=== PATIENT | male | born 1970 | race Caucasian/White ===

== ENCOUNTER 2016-07-22 10:44 | Emergency (ER) | payer OTHER ==
[2016-07-22 10:58] VITALS: BP 144/100
[2016-07-22] MEDS ORDERED: Cyclobenzaprine TAB* 10 MG PO ONE (11:22)
[2016-07-22] MEDS ORDERED: HYDROcodone/ACETAMIN 5-325 MG* 1 TAB PO ONE (11:23)
--- NOTE | 2016-07-22 11:30 | UC ---
esau Welch Timothy, scribed for Calista Gann MD on 07/22/16 at 1104 . Back Pain HPI - HPI Summary HPI Summary: Valente Hedrick is a 46 yo male presenting to [facility] with 10/10 bilateral lower back pain with spasms since 07/17/16, worse in the past 2 days. He states he does not remember any trauma, but remembers picking something up to put in his truck last week which may have aggravated his Sx. Pt has had similar sx in the past - but usually he can stretch and it improves. He presented to a chiropractor yesterday and following his adjustment, his symptoms increased. Pt reports tingling intermittently in right LE. No bowel/bladder changes/ incontience. Pt without other complaints. No cp, sob, abd pain. Pt is requesting an X-Ray "to look for a pinched nerve". Pt has self-medicated with ibuprofen with no relief. Pt has applied ice without relief. He has a Hx of chronic flare ups, but he states this has been worse than previous flare ups, and has never been admitted to a hospital for his back pain. Pt's father drove to ED. Sx. He states his father drove him to [facility] today. He denies any PMHx other than abd hernia. Pt medication list was reviewed this visit. - History of Current Complaint Stated Complaint: BACK PAIN Time Seen by Provider: 07/22/16 11:18 Hx Obtained From: Patient Onset/Duration: Gradual Onset, Lasting Days, Still Present, Worse Since - 2 days Timing: Constant Severity Initially: Moderate Severity Currently: Moderate Pain Intensity: 10 Pain Scale Used: 0-10 Numeric Back Pain: Is Discrete @ - bilateral lower back Character: Spasmodic Alleviating: Position - Allergies/Home Medications Allergies/Adverse Reactions: Allergies Allergy/AdvReac Type Severity Reaction Status Date / Time No Known Allergies Allergy Verified 06/19/14 06:48 Home Medications: Home Medications Ibuprofen [Advil] 800 mg PO 07/22/16 [History] PMH/Surg Hx/FS Hx/Imm Hx Previously Healthy: Yes GI/ History: Other Other GI/ History: abd hernia - Surgical History Surgical History: Yes Surgery Procedure, Year, and Place: umbilical hernia repair - Family History Known Family History: Positive: Hypertension, Diabetes, Other - back problems - Social History Occupation: Employed Full-time Alcohol Use: Rare Substance Use Type: None Smoking Status (MU): Never Smoked Tobacco Review of Systems Constitutional: Negative Skin: Negative Eyes: Negative ENT: Negative Respiratory: Negative Cardiovascular: Negative Gastrointestinal: Negative Genitourinary: Negative Motor: Negative Neurovascular: Negative Musculoskeletal: Other: - bilateral lower back pain, right lower muscle spasm Neurological: Paresthesia - right leg Psychological: Negative All Other Systems Reviewed And Are Negative: Yes Physical Exam Triage Information Reviewed: Yes Appearance: Well-Appearing, Well-Nourished, Pain Distress - discomfort with movement - position of comfort standing Vital Signs: Initial Vital Signs Temp 98.2 F 07/22/16 10:54 Pulse 85 07/22/16 10:54 Resp 18 07/22/16 10:54 BP 144/100 07/22/16 10:54 Pulse Ox 98 07/22/16 10:54 Vital Signs Reviewed: Yes Eye Exam: Normal ENT: Positive: Hearing grossly normal Neck exam: Normal Neck: Positive: Supple, Nontender, No Lymphadenopathy Respiratory: Positive: Lungs clear, Normal breath sounds. Negative: Wheezing Cardiovascular: Positive: RRR, No Murmur, Pulses Normal, Other: - 2+ PT Abdominal Exam: Normal Abdomen Description: Positive: Nontender, No Organomegaly, Soft Bowel Sounds: Positive: Present Musculoskeletal: Positive: Other: - + TTP right lower lumbar paraspinal muscle pain and palpable spasm - pt with direct palpation + SLE b/l with increased back on right + flex/ext knee, ankle against resistance Neurological Exam: Normal Neurological: Positive: Muscle Tone Normal, Other: - 2+ patellar, achilles b/l without clonus + gross sensation throughout LE Psychological Exam: Normal Skin Exam: Normal Diagnostics - Radiology L-Spine XR Xray Interpretation: Positive (See Comments) - IMPRESSION: Degenerative disc disease at L1-L2, L2-L3 and L3-L4 without fracture. Radiology Interpretation Completed By: Radiologist Re-Evaluation - Re-Evaluation First Eval Re-Evaluation Time: 12:11 Change: Unchanged Comment: Discussed imaging study with Pt. Pt states pain slightly improved - meds given < 15min ago He is agreeable to be discharged. Back Pain Course/Dx - Course Course Of Treatment: Valente Hedrick is a 46 yo male presenting to [facility] with 10/10 back pain for the past week, worse in the past 2 days, with mild tingling in his right leg, requesting an X-Ray. [facility]STOP was consulted: he has had no Rx for the past 6 months. He denies any Hx of narcotic prescriptions, except possibly for his hernia surgery, after which he was slightly nauseous. Pt was counseled that X-Rays will not show nerves or nerve damage. Pt was counseled regarding prescriptions for muscle spasms and had his questions answered. In the ED course he received norco and felxeril for pain management. His CXR suggests degnerative disc disease in L1-L2, L2-L3 and L3-L4 without fracture. After clinical examination and review of his imaging study, he will be discharged home with appropriate instructions. Will check xray and reassess. Pt's father present for ride home - Differential Dx/Diagnosis Provider Diagnoses: lumbar back pain Discharge - Discharge Plan Condition: Stable Disposition: HOME Discharge Disposition Comment: lumbar muscle spasm Prescriptions: Cyclobenzaprine TAB* [Flexeril 10 MG TAB*] 10 mg PO BID PRN #10 tab PRN Reason: Spasms Hydrocodone-Acetaminophen [[place] 5-325 mg] 1 - 2 tab PO Q6HR PRN #15 tab MDD 8 PRN Reason: Pain Patient Education Materials: Acute Low Back Pain (ED) Forms: *Work Release Referrals: Azra PAGE [facility] FAM[facility]ie [Primary Care Provider] - 2 Days Additional Instructions: - Alternate ibuprofen (Advil, Motrin) 600mg and Tylenol (Tylenol or [place]) every 3 hours for pain. Take with food. Do NOT take for more than 4-5 days. - Take muscle relaxant as prescribed - Apply heat 20 minutes at time - once your muscles are warm - slow, gentle stretching exercises once your muscles are warm - [place] may cause constipation - it is recommended you take a stool softner as needed so you do not have to strain to have a bowel movement - When lying down, place a pillow under your knees or between your knees to help relax the pressure on your back Call your doctor to schedule a follow-up appointment. Call your doctor or return with questions or concerns The documentation as recorded by the esau de oliveira Timothy accurately reflects the service I personally performed and the decisions made by , Calista Gann MD.
--- NOTE | 2016-07-22 11:58 | RAD ---
Indication: Lumbar back pain. 3 views of lumbar spine demonstrates vertebral bodies to be normal in height. Disc space narrowing at L1-L2, L2-L3 and L3-L4 with dorsal and ventral osteophyte formation is noted. Pedicles appear intact. IMPRESSION: Degenerative disc disease at L1-L2, L2-L3 and L3-L4 without fracture.
== END 2016-07-22 12:29 | disposition home or self-care (01) ==
LOC: UCEAST 10:44
DX: M51.36 Other intervertebral disc degeneration, lumbar region (principal)
CPT/HCPCS: 72100; 99212; A9270-GY; G0463

== ENCOUNTER 2020-12-19 06:09 | Inpatient (IN) ==
[2020-12-19 07:48] LABS: ABS Lymphocytes 0.6 10^3/ul (1.0-4.8); ABS Monocytes 0.7 10^3/ul (0-0.8); ABS Neutrophils 9.4 10^3/ul (1.5-7.7); Hematocrit 46 % (42-52); Hemoglobin 16.1 g/dL (14.0-18.0); Lymphocyte % 5.9 %; Mean Corpuscular HGB Conc 35 g/dL (31-36); Mean Corpuscular Hemoglobin 32 pg (27-31); Mean Corpuscular Volume 90 fL (80-94); Platelet Count 180 10^3/uL (150-450); Red Blood Count 5.06 10^6 /uL (4.18-5.48); Red Cell Distribution Width 13 % (10-15); White Blood Count 10.8 10^3/uL (3.5-10.8)
[2020-12-19 08:07] LABS: Albumin 3.7 g/dL (3.2-5.2); Albumin/Globulin Ratio 1.1 (1-3); Calcium 9.5 mg/dL (8.6-10.3); Globulin 3.3 g/dL (2-4); Total Bilirubin 1.2 mg/dL (0.2-1.0)
[2020-12-19 08:10] LABS: Rapid COVID-19 Molecular Undetected (Undetected)
[2020-12-19] MEDS ORDERED: Remdesivir 100 mg Vial 200 MG in NS 0.9% 250 ml 210 ML IV ONE (09:55)
[2020-12-19] MEDS ORDERED: NS 0.9% 1000 ml BAG 1,000 ML IV SCH (10:00)
[2020-12-19] MEDS ORDERED: Iohexol 350 (CONTRAST) 500 ML MDV IV ONE (10:19)
[2020-12-19 10:26] LABS: INR 1.2 (0.86-1.15)
[2020-12-19] MEDS: Enoxaparin 40 MG/0.4 ML SYR SUBCUT SCH (22:05)
[2020-12-20] MEDS: guaiFENesin/CODIENE 100mg/10mg 5 ML UDC PO PRN ×4 (02:10→22:50)
[2020-12-20 06:41] LABS: INR 1.2 (0.86-1.15)
[2020-12-20 06:57] LABS: Albumin 3.4 g/dL (3.2-5.2); Albumin/Globulin Ratio 1.2 (1-3); Calcium 8.9 mg/dL (8.6-10.3); Globulin 2.8 g/dL (2-4); Potassium 4.1 mmol/L (3.5-5.0); Total Protein 6.2 g/dL (6.4-8.9)
[2020-12-20] MEDS: Remdesivir 100 mg Vial 100 MG in NS 0.9% 250 ml 230 ML IV SCH (09:03)
[2020-12-20 12:56] LABS: PCO2 Arterial 41 mmHg (35-45); PO2 Arterial 68 mmHg (80-100)
[2020-12-20] MEDS ORDERED: Furosemide 40 mg/4 ml IV VIAL IV ONE (13:23)
[2020-12-20] MEDS ORDERED: Tocilizumab 200 MG/10 ML 10 ml VIAL IVPB ONE (13:24)
[2020-12-20] MEDS ORDERED: Tocilizumab** 800 MG in NS 0.9% 100 ml BAG 60 ML IVPB ONE (14:00)
[2020-12-20] MEDS: Enoxaparin 40 MG/0.4 ML SYR SUBCUT SCH (20:16)
[2020-12-21] MEDS: guaiFENesin/CODIENE 100mg/10mg 5 ML UDC PO PRN (03:59)
[2020-12-21 05:54] LABS: INR 1.23 (0.86-1.15)
[2020-12-21 06:18] LABS: Albumin 3.4 g/dL (3.2-5.2); Albumin/Globulin Ratio 1.2 (1-3); Calcium 9.1 mg/dL (8.6-10.3); Globulin 2.9 g/dL (2-4); Potassium 4.1 mmol/L (3.5-5.0); Total Protein 6.3 g/dL (6.4-8.9)
[2020-12-21 09:09] LABS: PCO2 Arterial 34 mmHg (35-45); PO2 Arterial 107 mmHg (80-100)
[2020-12-21] MEDS: Remdesivir 100 mg Vial 100 MG in NS 0.9% 250 ml 230 ML IV SCH (09:19)
[2020-12-21] MEDS ORDERED: methylPREDNISolone 125 mg 2 ML VIAL IV ONE (12:04)
[2020-12-21] MEDS ORDERED: Furosemide 40 mg/4 ml IV VIAL IV SLOW PU ONE (12:04)
[2020-12-21] MEDS: Enoxaparin 40 MG/0.4 ML SYR SUBCUT SCH (19:28)
[2020-12-21] MEDS: methylPREDNISolone SOD 40 mg/ml 1 ml VIAL IV SCH (22:42)
[2020-12-22 05:06] LABS: ABS Lymphocytes 0.5 10^3/ul (1.0-4.8); ABS Monocytes 0.7 10^3/ul (0-0.8); ABS Neutrophils 8.4 10^3/ul (1.5-7.7); Hematocrit 45 % (42-52); Hemoglobin 15.5 g/dL (14.0-18.0); Mean Corpuscular HGB Conc 34 g/dL (31-36); Mean Corpuscular Hemoglobin 32 pg (27-31); Mean Corpuscular Volume 92 fL (80-94); Mean Platelet Volume 8.7 fL (7.4-10.4); Platelet Count 297 10^3/uL (150-450); Red Blood Count 4.91 10^6 /uL (4.18-5.48); Red Cell Distribution Width 13 % (10-15); White Blood Count 9.6 10^3/uL (3.5-10.8)
[2020-12-22 05:11] LABS: INR 1.17 (0.86-1.15)
[2020-12-22 05:21] LABS: Calcium 9.2 mg/dL (8.6-10.3); Magnesium 2.2 mg/dL (1.9-2.7); Phosphorus 3.5 mg/dL (2.5-5.0); Potassium 4.3 mmol/L (3.5-5.0)
[2020-12-22] MEDS: Remdesivir 100 mg Vial 100 MG in NS 0.9% 250 ml 230 ML IV SCH (09:12)
[2020-12-22] MEDS: methylPREDNISolone SOD 40 mg/ml 1 ml VIAL IV SCH ×2 (11:44→22:50)
[2020-12-22] MEDS: Multivitamins/Minerals TAB PO SCH (15:47)
[2020-12-22] MEDS: Enoxaparin 40 MG/0.4 ML SYR SUBCUT SCH (20:06)
[2020-12-22] MEDS: Acetylcysteine 600mgCAP(RENAL) PO SCH (20:06)
[2020-12-23 05:24] LABS: Hematocrit 46 % (42-52); Hemoglobin 15.5 g/dL (14.0-18.0); Mean Corpuscular HGB Conc 34 g/dL (31-36); Mean Corpuscular Hemoglobin 31 pg (27-31); Mean Corpuscular Volume 92 fL (80-94); Mean Platelet Volume 8.3 fL (7.4-10.4); Platelet Count 319 10^3/uL (150-450); Red Blood Count 4.95 10^6 /uL (4.18-5.48); Red Cell Distribution Width 13 % (10-15); White Blood Count 10.5 10^3/uL (3.5-10.8)
[2020-12-23 05:30] LABS: INR 1.04 (0.86-1.15)
[2020-12-23 05:40] LABS: Calcium 8.9 mg/dL (8.6-10.3); Magnesium 2.3 mg/dL (1.9-2.7); Phosphorus 3.6 mg/dL (2.5-5.0); Potassium 4.6 mmol/L (3.5-5.0)
[2020-12-23 05:53] LABS: ABS Lymphocytes 0.8 10^3/ul (1.0-4.8); ABS Monocytes 0.7 10^3/ul (0-0.8); Eosinophil % 0.1 %; Lymphocyte % 7.4 %; Nucleated Red Blood Cells % 0.1
[2020-12-23] MEDS: Acetylcysteine 600mgCAP(RENAL) PO SCH ×2 (08:37→20:25)
[2020-12-23] MEDS: Multivitamins/Minerals TAB PO SCH (08:37)
[2020-12-23] MEDS: Remdesivir 100 mg Vial 100 MG in NS 0.9% 250 ml 230 ML IV SCH (08:40)
[2020-12-23 10:14] LABS: PCO2 Arterial 46 mmHg (35-45)
[2020-12-23 10:20] LABS: PO2 Arterial 41 mmHg (80-100)
[2020-12-23] MEDS: methylPREDNISolone SOD 40 mg/ml 1 ml VIAL IV SCH ×2 (11:19→22:58)
[2020-12-23] MEDS: Enoxaparin 40 MG/0.4 ML SYR SUBCUT SCH (20:25)
[2020-12-24 05:18] LABS: Hematocrit 45 % (42-52); Hemoglobin 15.4 g/dL (14.0-18.0); Mean Corpuscular HGB Conc 34 g/dL (31-36); Mean Corpuscular Hemoglobin 32 pg (27-31); Mean Corpuscular Volume 93 fL (80-94); Mean Platelet Volume 8.3 fL (7.4-10.4); Platelet Count 341 10^3/uL (150-450); Red Blood Count 4.87 10^6 /uL (4.18-5.48); Red Cell Distribution Width 13 % (10-15); White Blood Count 11.5 10^3/uL (3.5-10.8)
[2020-12-24 05:23] LABS: INR 1.06 (0.86-1.15)
[2020-12-24 05:35] LABS: Calcium 8.8 mg/dL (8.6-10.3); Magnesium 2.3 mg/dL (1.9-2.7); Phosphorus 3.1 mg/dL (2.5-5.0); Potassium 4.8 mmol/L (3.5-5.0)
[2020-12-24 05:40] LABS: ABS Eosinophils 0.1 10^3/ul (0-0.6); ABS Lymphocytes 0.6 10^3/ul (1.0-4.8); ABS Monocytes 0.6 10^3/ul (0-0.8); ABS Neutrophils 10.1 10^3/ul (1.5-7.7); Lymphocyte % 5.5 %; Nucleated Red Blood Cells % 0.1
[2020-12-24] MEDS ORDERED: Perflutren Lipid Microsphere 3 ML VIAL ONE (08:47)
[2020-12-24] MEDS: Acetylcysteine 600mgCAP(RENAL) PO SCH ×2 (09:15→22:16)
[2020-12-24] MEDS: Multivitamins/Minerals TAB PO SCH (09:15)
[2020-12-24] MEDS: methylPREDNISolone SOD 40 mg/ml 1 ml VIAL IV SCH (12:49)
[2020-12-24] MEDS: Enoxaparin 40 MG/0.4 ML SYR SUBCUT SCH (22:16)
[2020-12-25 06:37] LABS: Hematocrit 47 % (42-52); Hemoglobin 15.9 g/dL (14.0-18.0); Mean Corpuscular HGB Conc 34 g/dL (31-36); Mean Corpuscular Hemoglobin 31 pg (27-31); Mean Corpuscular Volume 92 fL (80-94); Mean Platelet Volume 8.5 fL (7.4-10.4); Platelet Count 391 10^3/uL (150-450); Red Blood Count 5.07 10^6 /uL (4.18-5.48); Red Cell Distribution Width 14 % (10-15); White Blood Count 14.7 10^3/uL (3.5-10.8)
[2020-12-25 07:04] LABS: Magnesium 2.3 mg/dL (1.9-2.7); Potassium 4.4 mmol/L (3.5-5.0)
[2020-12-25 07:44] LABS: RBC Morphology Normal (Normal)
[2020-12-25 07:45] LABS: ABS Basophils 0.1 10^3/ul (0-0.2); ABS Eosinophils 0.2 10^3/ul (0-0.6); ABS Lymphocytes 2.3 10^3/ul (1.0-4.8); ABS Monocytes 1.2 10^3/ul (0-0.8); ABS Neutrophils 10.9 10^3/ul (1.5-7.7); Eosinophil % 1.5 %; Lymphocyte % 15.5 %
[2020-12-25] MEDS ORDERED: methylPREDNISolone SOD 40 mg/ml 1 ml VIAL IV SCH (09:00)
[2020-12-25] MEDS: Multivitamins/Minerals TAB PO SCH (09:07)
[2020-12-25] MEDS: Acetylcysteine 600mgCAP(RENAL) PO SCH ×2 (09:07→19:31)
[2020-12-25] MEDS: Enoxaparin 40 MG/0.4 ML SYR SUBCUT SCH (19:31)
[2020-12-25] MEDS: guaiFENesin/CODIENE 100mg/10mg 5 ML UDC PO PRN (22:13)
[2020-12-26] MEDS: Multivitamins/Minerals TAB PO SCH (10:19)
[2020-12-26] MEDS: Acetylcysteine 600mgCAP(RENAL) PO SCH (10:19)
[2020-12-26 11:12] VITALS: BP 116/82
== END 2020-12-26 12:54 | disposition home or self-care (01) | DRG 137 ==
LOC: ED 06:09 → SUATTDRO 09:55 → MED 09:55 → ICU 12-21 11:16 → MED 12-25 08:31
PROVIDERS: ADMIT Hospitalist; ATTEND Internal Medicine